=== PATIENT | female | born 1975 | race Caucasian/White ===

== ENCOUNTER 2024-01-24 07:33 | Day surgery (SDC) | payer BC ==
[~2024-01-24 07:33] MED LIST: Midazolam 1 MG/ML 2 ML SDV ONE; Propofol 200 MG/20 ML SDV ONE; Sodium Chloride 0.9% 10 ML Syringe FLUSH PRN
[2024-01-24] MEDS: Lactated Ringers 1,000 ML IV SCH (07:44)
[2024-01-24] MEDS ORDERED: Glycopyrrolate 0.2 MG/ML SDV IVPUSH ONE (09:00)
== END 2024-01-24 10:40 ==
LOC: LL.SDS 07:33
PROVIDERS: ATTEND Surgery
DX: Z12.11 Encounter for screening for malignant neoplasm of colon (principal); R13.10 Dysphagia, unspecified; K20.0 Eosinophilic esophagitis; K21.9 Gastro-esophageal reflux disease without esophagitis; Z80.0 Family history of malignant neoplasm of digestive organs
CPT/HCPCS: 00813; J2250; J2704; J3490; J7120